=== PATIENT | male | born 1970 ===

== ENCOUNTER 2018-07-16 09:29 | Emergency (ER) | payer OTHER ==
[~2018-07-16] VITALS: Ht 180.3 cm; Wt 83.0 kg
[2018-07-16] MEDS ORDERED: PROTONIX20 MG PO (09:51)
== END 2018-07-16 15:16 | disposition home or self-care (01) ==
LOC: ER 09:29
DX: I16.0 Hypertensive urgency (principal); I10 Essential (primary) hypertension; R07.89 Other chest pain